=== PATIENT | female | born 1985 | race Caucasian/White ===

== ENCOUNTER 2018-06-25 13:59 | Emergency (ER) | payer OTHER, BC ==
[~2018-06-25] VITALS: Ht 167.6 cm; Wt 61.2 kg
[2018-06-25 14:20] VITALS: BP 126/77
--- NOTE | 2018-06-25 14:45 | NUR ---
PT AMB TO BED 12
--- NOTE | 2018-06-25 14:56 | NUR ---
PT TO US VIA W/C IN STABLE CONDITION
--- NOTE | 2018-06-25 15:00 | NUR ---
32 YO F BIB FAMILY [facility]BER WITH CHIEF C/O HEAVY VAGINAL BLEEDING X 2 DAYS. PT VERBALIZED MENSES IS HEAVIER THAN USUAL AND PADS ARE BEING CHANGED EVERY HOUR. WITH THE LAST 6 HOURS BEING COMPLETELY SATURATED. DENIES DIZZINESS, A/O X4. CONNECTED TO MONITOR. VSS.
[2018-06-25 15:08] LABS: BASOPHILS # (AUTO) 0.1 K/uL (0.00-0.22); BASOPHILS % (AUTO) 0.8 % (0.0-2.0); EOSINOPHILS # (AUTO) 0.2 K/uL (0-0.4); EOSINOPHILS % (AUTO) 2.8 % (0.0-4.0); HEMATOCRIT 36.8 % (36-48); HEMOGLOBIN 12.2 g/dL (12.0-16.0); LYMPHOCYTES % (AUTO) 25.2 % (20.5-51.1); MEAN CORPUSCULAR HEMOGLOBIN 28 pg (27-31); MEAN CORPUSCULAR HGB CONC 33 g/dL (33-37); MEAN CORPUSCULAR VOLUME 84.5 fL (80-94); MONOCYTES # (AUTO) 0.4 K/uL (0.8-1.0); MONOCYTES % (AUTO) 5.5 % (1.7-9.3); NEUTROPHILS # (AUTO) 5.2 K/uL (1.8-7.7); NEUTROPHILS % (AUTO) 65.7 % (42.2-75.2); PLATELET COUNT (AUTO) 296 K/uL (140-450); RED BLOOD CELL COUNT(AUTO) 4.36 MIL/uL (4.20-5.40); RED CELL DISTRIBUTION WIDTH 15.6 % (11.6-13.7); WHITE BLOOD COUNT (AUTO) 7.9 K/uL (4.8-10.8)
[2018-06-25 15:26] LABS: APPEARANCE,URINE SL CLOUDY (CLEAR); BILIRUBIN,URINE 1+ (NEGATIVE); BLOOD, URINE 3+ (NEGATIVE); COLOR,URINE RED (YELLOW); LEUKOCYTE ESTERASE ,URINE 1+ (NEGATIVE); NITRITE, URINE POSITIVE (NEGATIVE); PH,URINE 5.5 (5.0-9.0); UGLUCOSE NEGATIVE (NEGATIVE)
[2018-06-25 15:29] LABS: PROTHROMBIN TIME 11.1 secs (10.8-13.4)
[2018-06-25 15:36] LABS: RBC,URINE TOO NUMEROUS TO COUN /HPF (0-5); WBC,URINE 0-5 /HPF (0-5)
--- NOTE | 2018-06-25 17:32 | NUR ---
IRMA Steiner at bedside for pelvic exam. 2 female RNs assisting. at bedside.
--- NOTE | 2018-06-25 18:16 | NUR ---
Patient discharged with v/s stable. Written and verbal after care instructions given and explained. Patient alert, oriented and verbalized understanding of instructions. Ambulatory with steady gait. All questions addressed prior to discharge. ID band removed. Patient advised to follow up with PMD. Rx of ALLOY WEIGHER AND SEPTRA DS given. Patient educated on indication of medication including possible reaction and side effects. Opportunity to ask questions provided and answered.
[2018-06-25 18:17] VITALS: BP 104/73
== END 2018-06-25 18:16 | disposition home or self-care (01) ==
LOC: MED 13:59
DX: N94.6 Dysmenorrhea, unspecified (principal); N39.0 Urinary tract infection, site not specified
CPT/HCPCS: 36415; 76830; 81001; 81025; 84702; 85025; 85610; 85730; 87086; 99284; Q0092